=== PATIENT | female | born 1985 | race Caucasian/White ===

== ENCOUNTER 2018-01-15 21:29 | Emergency (ER) | payer OTHER, MEDICAID ==
[~2018-01-15] VITALS: Ht 149.9 cm; Wt 58.1 kg
[~2018-01-15 21:29] MED LIST: AMOXICILLIN 50500 MG PO; PERIDEX15 ML SWISH&SPIT; TRAMADOL 50 MG50 MG PO; magic mouthwash PO
[2018-01-15] MEDS ORDERED: ULTRAM50 MG PO (21:57)
[2018-01-15] MEDS ORDERED: ZOVIRAX800 MG PO (21:57)
[2018-01-15] MEDS ORDERED: NYSTATIN100000 UNI PO (21:57)
[2018-01-15 22:30] VITALS: BP 113/71
== END 2018-01-15 22:32 | disposition home or self-care (01) ==
LOC: M.ERS 21:29
DX: K13.79 Other lesions of oral mucosa (principal); Z90.49 Acquired absence of other specified parts of digestive tract; Z88.6 Allergy status to analgesic agent

== ENCOUNTER 2018-08-22 09:24 | Emergency (ER) | payer OTHER, MEDICAID ==
[~2018-08-22] VITALS: Ht 149.9 cm; Wt 56.7 kg
[~2018-08-22 09:24] MED LIST changes: +NYSTATIN100000 UNI PO; +ULTRAM50 MG PO; +ZOVIRAX800 MG PO
[2018-08-22 10:11] LABS: HEMATOCRIT 38.8 % (37.0-47.0); HEMOGLOBIN 13.1 gm/dL (12.0-15.0); MCH 31.1 pg (26.0-34.0); MCHC 33.8 g/dL (28.0-37.0); MCV 91.9 fL (80.0-100.0); MPV 8.7 fl. (7.2-11.1); RBC 4.22 mil/uL (4.20-5.00); RDW-CV 12.6 % (10.5-14.5); WBC 4.4 thou/uL (4.0-11.0)
[2018-08-22 10:19] LABS: ANION GAP 7 mmol/L (7-16); BUN 6 mg/dL (7-18); CALCIUM 8.9 mg/dL (8.5-10.1); CHLORIDE 106 mmol/L (98-107); CO2 27 mmol/L (21-32); CREATININE 0.6 mg/dL (0.6-1.3); GLUCOSE 88 mg/dL (70-99); SODIUM 140 mmol/L (136-145)
[2018-08-22 10:24] LABS: ALBUMIN 3.6 g/dL (3.4-5.0); ALKALINE PHOSPHATASE 73 U/L (46-116); LIPASE 326 U/L (73-393); SGOT 22 U/L (15-37); SGPT 23 U/L (30-65); TOTAL BILIRUBIN 0.4 mg/dL (<0.1-1.0); TROPONIN-I LEVEL <0.06 ng/mL (<0.06)
[2018-08-22] MEDS ORDERED: HYDROCODONE-AP1 EAC6 PO (10:34)
[2018-08-22] MEDS ORDERED: FLEXERIL PO (10:34)
[2018-08-22 10:42] VITALS: BP 111/64
== END 2018-08-22 10:42 | disposition home or self-care (01) ==
LOC: M.ERS 09:24
PROVIDERS: Emergency Medicine Emergency Medical Services
DX: R07.81 Pleurodynia (principal); M54.9 Dorsalgia, unspecified; Z90.49 Acquired absence of other specified parts of digestive tract; Z88.1 Allergy status to other antibiotic agents; Z88.8 Allergy status to other drugs, medicaments and biological substances; V40.0XXA Car driver injured in collision with pedestrian or animal in nontraffic accident, initial encounter; Y93.89 Activity, other specified; Y92.89 Other specified places as the place of occurrence of the external cause; Y99.8 Other external cause status

== ENCOUNTER 2018-09-30 16:20 | Emergency (ER) | payer OTHER, MEDICAID ==
[~2018-09-30] VITALS: Ht 149.9 cm; Wt 56.7 kg
[~2018-09-30 16:20] MED LIST changes: +FLEXERIL PO; +HYDROCODONE-AP1 EAC6 PO
[2018-09-30 16:31] VITALS: BP 106/64
[2018-09-30] MEDS ORDERED: BACTRIM DS TAB1 EACH PO (16:50)
== END 2018-09-30 17:11 | disposition home or self-care (01) ==
LOC: M.ERS 16:20
DX: J02.9 Acute pharyngitis, unspecified (principal); S20.461A Insect bite (nonvenomous) of right back wall of thorax, initial encounter; L08.9 Local infection of the skin and subcutaneous tissue, unspecified; Z90.49 Acquired absence of other specified parts of digestive tract; Z88.1 Allergy status to other antibiotic agents; Z88.8 Allergy status to other drugs, medicaments and biological substances; W57.XXXA Bitten or stung by nonvenomous insect and other nonvenomous arthropods, initial encounter; Y93.89 Activity, other specified; Y92.89 Other specified places as the place of occurrence of the external cause; Y99.8 Other external cause status

== ENCOUNTER 2018-12-04 00:48 | Emergency (ER) | payer OTHER, MEDICAID ==
[~2018-12-04] VITALS: Ht 149.9 cm; Wt 56.7 kg
[~2018-12-04 00:48] MED LIST changes: +BACTRIM DS TAB1 EACH PO
[2018-12-04 01:35] LABS: URINE BILIRUBIN NEGATIVE (Negative); URINE BLOOD 3+ (Negative); URINE CLARITY CLEAR; URINE COLOR YELLOW; URINE GLUCOSE-RANDOM NEGATIVE (Negative); URINE KETONES NEGATIVE (Negative); URINE LEUKOCYTES-REFLEX NEGATIVE (Negative); URINE NITRITE-REFLEX NEGATIVE (Negative); URINE PROTEIN NEGATIVE (Negative); URINE UROBILINOGEN 0.2 E.U./dl (0.2-1.0)
[2018-12-04 01:42] LABS: BACTERIA-REFLEX >30 Many /HPF (None Seen); CASTS None Seen /LPF (None Seen); MUCUS 4-6 Moderate strn/LPF (None Seen); SQUAMOUS 0-3 Few /LPF (0-3); URINE RBC >20 Many /HPF (0-2); URINE WBC-REFLEX 0-5 Rare /HPF (0-5)
[2018-12-04 01:43] LABS: AMORPHOUS URATES Many /LPF (None Seen)
[2018-12-04 01:46] LABS: ABSOLUTE EOSINOPHILS 0.2 thou/uL (0.0-0.7); ABSOLUTE LYMPHOCYTES 2.2 thou/uL (0.8-5.3); ABSOLUTE MONOCYTES 0.4 thou/uL (0.0-1.2); ABSOLUTE NEUTROPHILS 3.1 thou/uL (1.6-8.1); BASOPHILS 0.6 %; EOSINOPHILS 3.1 %; HEMATOCRIT 35.9 % (37.0-47.0); HEMOGLOBIN 12.5 gm/dL (12.0-15.0); LYMPHOCYTES 37.4 %; MCH 31.6 pg (26.0-34.0); MCHC 34.7 g/dL (28.0-37.0); MCV 90.9 fL (80.0-100.0); MONOCYTES 6.8 %; MPV 8.4 fl. (7.2-11.1); NUCLEATED RBCS 0 /100WBC; PLATELET COUNT* 199 thou/uL (150-400); POLYS 52.1 %; RBC 3.95 mil/uL (4.20-5.00); RDW-CV 13.1 % (10.5-14.5); WBC 5.9 thou/uL (4.0-11.0)
[2018-12-04 01:56] LABS: CALCIUM 8.6 mg/dL (8.5-10.1); CREATININE 0.7 mg/dL (0.6-1.3); POTASSIUM 3.6 mmol/L (3.5-5.1)
[2018-12-04 02:01] LABS: ALBUMIN 3.4 g/dL (3.4-5.0); TOTAL BILIRUBIN 0.2 mg/dL (<0.1-1.0); TOTAL PROTEIN 7.2 g/dL (6.4-8.2)
[2018-12-04] MEDS ORDERED: MACROBID 100 M100 M1 PO (02:06)
[2018-12-04 02:20] VITALS: BP 124/74
== END 2018-12-04 02:23 | disposition home or self-care (01) ==
LOC: M.ERS 00:48
PROVIDERS: Emergency Medicine
DX: N39.0 Urinary tract infection, site not specified (principal); R42 Dizziness and giddiness; Z88.6 Allergy status to analgesic agent; Z88.8 Allergy status to other drugs, medicaments and biological substances; Z90.49 Acquired absence of other specified parts of digestive tract; Z98.890 Other specified postprocedural states

== ENCOUNTER 2018-12-12 21:56 | Emergency (ER) | payer OTHER, MEDICAID ==
[~2018-12-12] VITALS: Ht 149.9 cm; Wt 56.7 kg
[~2018-12-12 21:56] MED LIST changes: +MACROBID 100 M100 M1 PO
[2018-12-12] MEDS ORDERED: MACROBID 100 M100 M1 PO (22:05)
[2018-12-12] MEDS ORDERED: FLAGYL500 M1 PO (22:05)
[2018-12-12] MEDS ORDERED: ROBAXIN 750 MG750 M1 PO (22:06)
[2018-12-12 22:34] LABS: CALCIUM 9.1 mg/dL (8.5-10.1); CREATININE 0.7 mg/dL (0.6-1.3); POTASSIUM 3.3 mmol/L (3.5-5.1)
[2018-12-12 22:41] LABS: ABSOLUTE LYMPHOCYTES 1.8 thou/uL (0.8-5.3); MCHC 34.4 g/dL (28.0-37.0); NUCLEATED RBCS 0 /100WBC; POLYS 53.9 %
[2018-12-12 22:43] LABS: ABSOLUTE EOSINOPHILS 0.1 thou/uL (0.0-0.7); ABSOLUTE MONOCYTES 0.4 thou/uL (0.0-1.2); ABSOLUTE NEUTROPHILS 2.7 thou/uL (1.6-8.1); BASOPHILS 0.6 %; EOSINOPHILS 2.8 %; HEMATOCRIT 39.6 % (37.0-47.0); HEMOGLOBIN 13.6 gm/dL (12.0-15.0); LYMPHOCYTES 35.5 %; MCH 31.7 pg (26.0-34.0); MCV 92.2 fL (80.0-100.0); MONOCYTES 7.2 %; MPV 8.9 fl. (7.2-11.1); PLATELET COUNT* 202 thou/uL (150-400); RBC 4.29 mil/uL (4.20-5.00); RDW-CV 13.4 % (10.5-14.5); WBC 5.1 thou/uL (4.0-11.0)
[2018-12-12] MEDS ORDERED: FLEXERIL PO (22:51)
[2018-12-12] MEDS ORDERED: PREDNISONE 20 M20 MG PO (22:51)
[2018-12-12] MEDS ORDERED: BENADRYL25 MG PO (22:51)
[2018-12-12] MEDS ORDERED: PEPCID20 MG PO (22:51)
[2018-12-12 23:33] VITALS: BP 111/68
== END 2018-12-12 23:36 | disposition home or self-care (01) ==
LOC: M.ERS 21:56
PROVIDERS: Nurse Practitioner Family
DX: L50.9 Urticaria, unspecified (principal); T42.8X5A Adverse effect of antiparkinsonism drugs and other central muscle-tone depressants, initial encounter; Z98.890 Other specified postprocedural states; Z90.49 Acquired absence of other specified parts of digestive tract; Z88.6 Allergy status to analgesic agent; Z88.8 Allergy status to other drugs, medicaments and biological substances; Y92.89 Other specified places as the place of occurrence of the external cause

== ENCOUNTER → 2018-12-17 | Outpatient (CLI) | payer OTHER, MEDICAID ==
[~2018-12-17] MED LIST changes: +BENADRYL25 MG PO; +FLAGYL500 M1 PO; +PEPCID20 MG PO; +PREDNISONE 20 M20 MG PO; +ROBAXIN 750 MG750 M1 PO
== END ==
LOC: M.ULTRA 09:50
DX: N63.10 Unspecified lump in the right breast, unspecified quadrant (principal)

== ENCOUNTER 2019-02-19 10:35 | Emergency (ER) | payer OTHER, MEDICAID ==
[~2019-02-19] VITALS: Ht 149.9 cm; Wt 51.7 kg
[2019-02-19 11:00] LABS: URINE BILIRUBIN NEGATIVE (Negative); URINE BLOOD NEGATIVE (Negative); URINE CLARITY CLEAR; URINE COLOR YELLOW; URINE GLUCOSE-RANDOM NEGATIVE (Negative); URINE KETONES NEGATIVE (Negative); URINE LEUKOCYTES-REFLEX NEGATIVE (Negative); URINE NITRITE-REFLEX NEGATIVE (Negative); URINE PROTEIN TRACE (Negative)
[2019-02-19 11:02] LABS: ABSOLUTE EOSINOPHILS 0.2 thou/uL (0.0-0.7); ABSOLUTE LYMPHOCYTES 1.7 thou/uL (0.8-5.3); ABSOLUTE MONOCYTES 0.3 thou/uL (0.0-1.2); ABSOLUTE NEUTROPHILS 2.8 thou/uL (1.6-8.1); BASOPHILS 0.6 %; EOSINOPHILS 3.5 %; HEMATOCRIT 42.6 % (37.0-47.0); HEMOGLOBIN 14.9 gm/dL (12.0-15.0); LYMPHOCYTES 34.5 %; MCH 31.7 pg (26.0-34.0); MCHC 34.9 g/dL (28.0-37.0); MCV 91.1 fL (80.0-100.0); MONOCYTES 6.5 %; MPV 8.4 fl. (7.2-11.1); NUCLEATED RBCS 0 /100WBC; PLATELET COUNT* 238 thou/uL (150-400); POLYS 54.9 %; RBC 4.68 mil/uL (4.20-5.00); RDW-CV 12.7 % (10.5-14.5)
[2019-02-19 11:19] LABS: ALBUMIN 4.3 g/dL (3.4-5.0); CALCIUM 9.9 mg/dL (8.5-10.1); CREATININE 0.6 mg/dL (0.6-1.3); POTASSIUM 3.5 mmol/L (3.5-5.1); TOTAL BILIRUBIN 1.1 mg/dL (<0.1-1.0)
[2019-02-19] MEDS ORDERED: ACETAMINOPHEN-1 EAC1 PO (11:56)
[2019-02-19] MEDS ORDERED: ZOFRAN ODT4 MG PO (11:56)
[2019-02-19 12:10] VITALS: BP 128/72
== END 2019-02-19 12:35 | disposition home or self-care (01) ==
LOC: M.ERS 10:35
PROVIDERS: Physician Assistant
DX: R11.2 Nausea with vomiting, unspecified (principal); R19.7 Diarrhea, unspecified; R10.13 Epigastric pain; Z88.8 Allergy status to other drugs, medicaments and biological substances; Z90.49 Acquired absence of other specified parts of digestive tract; Z98.890 Other specified postprocedural states

== ENCOUNTER 2019-05-15 02:28 | Emergency (ER) | payer OTHER ==
[~2019-05-15] VITALS: Ht 149.9 cm; Wt 56.7 kg
[~2019-05-15 02:28] MED LIST changes: +ACETAMINOPHEN-1 EAC1 PO; +ZOFRAN ODT4 MG PO
[2019-05-15] MEDS ORDERED: FLEXERIL PO ×2 (02:40→03:44)
[2019-05-15] MEDS ORDERED: CARAFATE 1 GM TA1 GM PO (03:44)
[2019-05-15 03:53] VITALS: BP 114/68
--- NOTE | 2019-05-17 12:24 | EKG ---
[place] [address] ELECTROCARDIOGRAM REPORT Name: ALICE DURHAM Room: 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
== END 2019-05-15 03:55 | disposition home or self-care (01) ==
LOC: M.ERS 02:28
DX: R06.00 Dyspnea, unspecified (principal); F12.10 Cannabis abuse, uncomplicated; R10.13 Epigastric pain; M54.9 Dorsalgia, unspecified; Z90.89 Acquired absence of other organs; Z98.51 Tubal ligation status

== ENCOUNTER 2019-06-24 12:34 | Emergency (ER) | payer OTHER ==
[~2019-06-24] VITALS: Ht 149.9 cm; Wt 56.7 kg
[~2019-06-24 12:34] MED LIST changes: +CARAFATE 1 GM TA1 GM PO
[2019-06-24 13:03] LABS: HEMATOCRIT 41.6 % (37.0-47.0); HEMOGLOBIN 14.7 gm/dL (12.0-15.0); MCH 32.2 pg (26.0-34.0); MCHC 35.3 g/dL (28.0-37.0); MCV 91.2 fL (80.0-100.0); MPV 8.7 fl. (7.2-11.1); RBC 4.56 mil/uL (4.20-5.00); RDW-CV 12.7 % (10.5-14.5); WBC 7.3 thou/uL (4.0-11.0)
[2019-06-24 13:12] LABS: CALCIUM 9.3 mg/dL (8.5-10.1); CREATININE 0.7 mg/dL (0.6-1.3); POTASSIUM 3.7 mmol/L (3.5-5.1)
[2019-06-24 13:16] LABS: ALBUMIN 4.2 g/dL (3.4-5.0); TOTAL BILIRUBIN 0.6 mg/dL (<0.1-1.0); TOTAL PROTEIN 8.4 g/dL (6.4-8.2)
[2019-06-24 13:22] LABS: SALICYLATE 3.7 mg/dL (2.8-20.0)
[2019-06-24 13:23] LABS: ACETAMINOPHEN < 2 ug/mL (10-30); ALCOHOL < 10 mg/dL (<10)
[2019-06-24 14:19] LABS: URINE BILIRUBIN NEGATIVE (Negative); URINE BLOOD NEGATIVE (Negative); URINE CLARITY CLEAR; URINE COLOR YELLOW; URINE GLUCOSE-RANDOM NEGATIVE (Negative); URINE KETONES NEGATIVE (Negative); URINE LEUKOCYTES NEGATIVE (Negative); URINE NITRITE NEGATIVE (Negative); URINE PROTEIN NEGATIVE (Negative); URINE UROBILINOGEN 0.2 E.U./dl (0.2-1.0)
[2019-06-24 14:30] LABS: AMP/METHAMP Negative (Negative); BARBITURATES Negative (Negative); BENZODIAZEPINES Negative (Negative); COCAINE Negative (Negative); METHADONE Negative (Negative); OPIATES Negative (Negative); PCP Negative (Negative); THC POSITIVE (Negative)
[2019-06-24 17:39] VITALS: BP 123/68
== END 2019-06-24 17:40 | disposition home or self-care (01) ==
LOC: M.ERS 12:34
PROVIDERS: Personal Emergency Response Attendant
DX: F32.9 Major depressive disorder, single episode, unspecified (principal); Z88.8 Allergy status to other drugs, medicaments and biological substances; Z90.49 Acquired absence of other specified parts of digestive tract; Z98.890 Other specified postprocedural states

== ENCOUNTER 2019-06-30 10:56 | Emergency (ER) | payer OTHER ==
[~2019-06-30] VITALS: Ht 149.9 cm; Wt 56.7 kg
[2019-06-30] MEDS ORDERED: HYDROCODON-ACE1 EAC7 PO (11:10)
[2019-06-30] MEDS ORDERED: FLEXERIL PO (11:10)
[2019-06-30 11:17] VITALS: BP 117/82
== END 2019-06-30 11:18 | disposition home or self-care (01) ==
LOC: M.ERS 10:56
DX: S16.1XXA Strain of muscle, fascia and tendon at neck level, initial encounter (principal); Z98.51 Tubal ligation status; Z90.49 Acquired absence of other specified parts of digestive tract; Z98.890 Other specified postprocedural states; Z88.8 Allergy status to other drugs, medicaments and biological substances; X58.XXXA Exposure to other specified factors, initial encounter; Y93.89 Activity, other specified; Y92.89 Other specified places as the place of occurrence of the external cause; Y99.8 Other external cause status

== ENCOUNTER 2019-10-08 18:17 | Emergency (ER) | payer OTHER ==
[~2019-10-08] VITALS: Ht 149.9 cm; Wt 59.0 kg
[~2019-10-08 18:17] MED LIST changes: +HYDROCODON-ACE1 EAC7 PO
[2019-10-08 19:41] LABS: HEMATOCRIT 36.9 % (37.0-47.0); HEMOGLOBIN 12.9 gm/dL (12.0-15.0); MCH 32.3 pg (26.0-34.0); MCHC 35.1 g/dL (28.0-37.0); MCV 92.1 fL (80.0-100.0); MPV 8.7 fl. (7.2-11.1); RBC 4.01 mil/uL (4.20-5.00); RDW-CV 12.6 % (10.5-14.5); WBC 5.6 thou/uL (4.0-11.0)
[2019-10-08] MEDS ORDERED: IBUPROFEN 800800 M1 PO (20:15)
[2019-10-08] MEDS ORDERED: FLEXERIL PO (20:15)
[2019-10-08] MEDS ORDERED: NORCO 5-325 TA1 EAC1 PO (20:15)
[2019-10-08 20:21] VITALS: BP 112/71
--- NOTE | 2019-10-11 14:33 | EKG ---
[place] [address] ELECTROCARDIOGRAM REPORT Name: ALICE DURHAM Room: [facility]#: [id number] Admission: 10/08/19 Attend Phys: Discharge: 10/08/19 Date of : 87 Report #: [id number] THIS REPORT FOR: //name// [facility] ED Test Date: 2019-10-08 Test Time: 18:25:25 Pat Name: ALICE DURHAM Department: Room: Gender: F Clinical Services Director: ALEJANDRO : 1985 Requested By: Marty Giron Order Number: [id number] MD: Omkar Cotto Measurements Intervals [place] Rate: 71 P: -16 ND: 156 QRS: 65 QRSD: 83 T: 49 QT: 393 QTc: 428 Interpretive Statements Sinus rhythm RSR' in V1 or V2, probably normal variant Baseline wander in lead(s) V3 Compared to ECG 05/15/2019 02:36:35 Right ventricular hypertrophy no longer present Electronically Signed On 10-11-2019 14:32:34 ELECTRICIAN SOUND by Omkar Cotto [email or web address] <ELECTRONICALLY SIGNED> By: Omkar Cotto MD, [facility] 10/11/19 1432 1825 182 Omkar Cotto MD, [facility] /EPI
== END 2019-10-08 20:22 | disposition home or self-care (01) ==
LOC: M.ERS 18:17
PROVIDERS: Emergency Medicine Emergency Medical Services
DX: M94.0 Chondrocostal junction syndrome [Tietze] (principal); Z90.49 Acquired absence of other specified parts of digestive tract; Z98.890 Other specified postprocedural states; Z88.8 Allergy status to other drugs, medicaments and biological substances

== ENCOUNTER 2019-11-29 14:37 | Emergency (ER) | payer OTHER ==
[~2019-11-29] VITALS: Ht 149.9 cm; Wt 59.0 kg
[~2019-11-29 14:37] MED LIST changes: +IBUPROFEN 800800 M1 PO; +NORCO 5-325 TA1 EAC1 PO
[2019-11-29 15:51] LABS: URINE BILIRUBIN NEGATIVE (Negative); URINE BLOOD NEGATIVE (Negative); URINE CLARITY CLEAR; URINE COLOR YELLOW; URINE GLUCOSE-RANDOM NEGATIVE (Negative); URINE KETONES NEGATIVE (Negative); URINE LEUKOCYTES-REFLEX NEGATIVE (Negative); URINE NITRITE-REFLEX NEGATIVE (Negative); URINE PROTEIN 1+ (Negative); URINE SPECIFIC GRAVITY 1.025 (1.005-1.030); URINE UROBILINOGEN 0.2 E.U./dl (0.2-1.0)
[2019-11-29 15:52] LABS: ABSOLUTE EOSINOPHILS 0.1 thou/uL (0.0-0.7); ABSOLUTE LYMPHOCYTES 1.4 thou/uL (0.8-5.3); ABSOLUTE MONOCYTES 0.3 thou/uL (0.0-1.2); ABSOLUTE NEUTROPHILS 4.3 thou/uL (1.6-8.1); BASOPHILS 0.4 %; EOSINOPHILS 1.7 %; HEMATOCRIT 38.9 % (37.0-47.0); HEMOGLOBIN 13.6 gm/dL (12.0-15.0); LYMPHOCYTES 22.5 %; MCH 32.3 pg (26.0-34.0); MCV 92.3 fL (80.0-100.0); MONOCYTES 5.1 %; MPV 8.1 fl. (7.2-11.1); NUCLEATED RBCS 0 /100WBC; PLATELET COUNT* 209 thou/uL (150-400); POLYS 70.3 %; RBC 4.21 mil/uL (4.20-5.00); RDW-CV 13.3 % (10.5-14.5); WBC 6.1 thou/uL (4.0-11.0)
[2019-11-29 16:00] LABS: CALCIUM 8.8 mg/dL (8.5-10.1); CREATININE 0.7 mg/dL (0.6-1.3)
[2019-11-29 16:00] LABS: AMP/METHAMP Negative (Negative); BARBITURATES Negative (Negative); BENZODIAZEPINES Negative (Negative); COCAINE Negative (Negative); METHADONE Negative (Negative); OPIATES Negative (Negative); PCP Negative (Negative); THC POSITIVE (Negative)
[2019-11-29 16:05] LABS: ALBUMIN 3.7 g/dL (3.4-5.0); TOTAL BILIRUBIN 0.4 mg/dL (<0.1-1.0); TOTAL PROTEIN 8.1 g/dL (6.4-8.2)
[2019-11-29 16:44] VITALS: BP 110/67
== END 2019-11-29 16:46 | disposition home or self-care (01) ==
LOC: M.ERS 14:37
PROVIDERS: Physician Assistant
DX: F41.9 Anxiety disorder, unspecified (principal); Z90.49 Acquired absence of other specified parts of digestive tract; Z98.890 Other specified postprocedural states; Z88.8 Allergy status to other drugs, medicaments and biological substances

== ENCOUNTER 2020-03-19 21:13 | Emergency (ER) | payer OTHER ==
[~2020-03-19] VITALS: Ht 149.9 cm; Wt 63.5 kg
[2020-03-19] MEDS ORDERED: BACTRIM DS TAB1 EAC1 PO (22:29)
[2020-03-19 22:41] VITALS: BP 105/59
== END 2020-03-19 22:43 | disposition home or self-care (01) ==
LOC: M.ERS 21:13
DX: N63.10 Unspecified lump in the right breast, unspecified quadrant (principal); F12.10 Cannabis abuse, uncomplicated; Z98.51 Tubal ligation status; Z90.89 Acquired absence of other organs; Z88.8 Allergy status to other drugs, medicaments and biological substances

== ENCOUNTER 2020-03-28 11:29 | Emergency (ER) | payer OTHER ==
[~2020-03-28] VITALS: Ht 149.9 cm; Wt 63.5 kg
[~2020-03-28 11:29] MED LIST changes: +BACTRIM DS TAB1 EAC1 PO
[2020-03-28 12:15] LABS: URINE BILIRUBIN NEGATIVE (Negative); URINE BLOOD TRACE (Negative); URINE CLARITY CLEAR; URINE COLOR YELLOW; URINE GLUCOSE-RANDOM NEGATIVE (Negative); URINE KETONES 1+ (Negative); URINE LEUKOCYTES-REFLEX NEGATIVE (Negative); URINE NITRITE-REFLEX NEGATIVE (Negative); URINE PROTEIN NEGATIVE (Negative); URINE UROBILINOGEN 0.2 E.U./dl (0.2-1.0)
[2020-03-28 12:33] LABS: ABSOLUTE EOSINOPHILS 0.1 thou/uL (0.0-0.7); ABSOLUTE LYMPHOCYTES 0.7 thou/uL (0.8-5.3); ABSOLUTE MONOCYTES 0.3 thou/uL (0.0-1.2); ABSOLUTE NEUTROPHILS 3.2 thou/uL (1.6-8.1); BASOPHILS 0.4 %; EOSINOPHILS 1.9 %; HEMATOCRIT 38.5 % (37.0-47.0); HEMOGLOBIN 13.5 gm/dL (12.0-15.0); LYMPHOCYTES 17.1 %; MCH 32.4 pg (26.0-34.0); MCV 92.4 fL (80.0-100.0); MONOCYTES 6.4 %; MPV 8.5 fl. (7.2-11.1); NUCLEATED RBCS 0 /100WBC; PLATELET COUNT* 196 thou/uL (150-400); POLYS 74.2 %; RBC 4.17 mil/uL (4.20-5.00); RDW-CV 12.4 % (10.5-14.5); WBC 4.3 thou/uL (4.0-11.0)
[2020-03-28 12:43] LABS: CALCIUM 8.4 mg/dL (8.5-10.1); CREATININE 0.9 mg/dL (0.6-1.3); POTASSIUM 3.2 mmol/L (3.5-5.1)
[2020-03-28] MEDS ORDERED: ONDANSETRON HCL4 M3 PO (12:49)
[2020-03-28] MEDS ORDERED: DOXYCYCLINE 10100 MG PO (12:49)
[2020-03-28 12:58] VITALS: BP 120/79
[2020-03-28 13:00] LABS: ALBUMIN 3.7 g/dL (3.4-5.0); TOTAL BILIRUBIN 0.4 mg/dL (<0.1-1.0); TOTAL PROTEIN 7.6 g/dL (6.4-8.2)
== END 2020-03-28 12:58 | disposition home or self-care (01) ==
LOC: M.ERS 11:29
PROVIDERS: Physician Assistant
DX: R11.0 Nausea (principal); R19.7 Diarrhea, unspecified; R51 Headache; Z90.89 Acquired absence of other organs; Z98.51 Tubal ligation status; Z88.8 Allergy status to other drugs, medicaments and biological substances

== ENCOUNTER 2020-06-01 12:57 | Emergency (ER) | payer OTHER ==
[~2020-06-01] VITALS: Ht 149.9 cm; Wt 59.0 kg
[~2020-06-01 12:57] MED LIST changes: +DOXYCYCLINE 10100 MG PO; +ONDANSETRON HCL4 M3 PO
[2020-06-01] MEDS ORDERED: IBUPROFEN 800800 M1 PO (14:35)
[2020-06-01] MEDS ORDERED: BUTALB-APAP-CA1 EACH PO (14:35)
[2020-06-01] MEDS ORDERED: FLEXERIL PO (14:35)
[2020-06-01 15:11] VITALS: BP 102/56
== END 2020-06-01 15:12 | disposition home or self-care (01) ==
LOC: M.ERS 12:57
DX: S06.0X0A Concussion without loss of consciousness, initial encounter (principal); S16.1XXA Strain of muscle, fascia and tendon at neck level, initial encounter; Z98.51 Tubal ligation status; Z90.49 Acquired absence of other specified parts of digestive tract; Z98.890 Other specified postprocedural states; Z88.8 Allergy status to other drugs, medicaments and biological substances; W01.0XXA Fall on same level from slipping, tripping and stumbling without subsequent striking against object, initial encounter; Y93.89 Activity, other specified; Y92.89 Other specified places as the place of occurrence of the external cause; Y99.8 Other external cause status

== ENCOUNTER 2020-06-08 11:43 | Emergency (ER) | payer OTHER ==
[~2020-06-08] VITALS: Ht 149.9 cm; Wt 59.0 kg
[~2020-06-08 11:43] MED LIST changes: +BUTALB-APAP-CA1 EACH PO
[2020-06-08] MEDS ORDERED: APAP W/CODEINE1 TA2 PO (12:14)
[2020-06-08 12:24] VITALS: BP 109/53
== END 2020-06-08 12:25 | disposition home or self-care (01) ==
LOC: M.ERS 11:43
DX: J02.9 Acute pharyngitis, unspecified (principal); Z88.8 Allergy status to other drugs, medicaments and biological substances; Z98.51 Tubal ligation status; Z90.49 Acquired absence of other specified parts of digestive tract; Z98.890 Other specified postprocedural states

== ENCOUNTER 2020-08-06 00:30 | Emergency (ER) | payer OTHER ==
[~2020-08-06] VITALS: Ht 149.9 cm; Wt 59.0 kg
[~2020-08-06 00:30] MED LIST changes: +APAP W/CODEINE1 TA2 PO
[2020-08-06 00:55] LABS: ABSOLUTE EOSINOPHILS 0.1 thou/uL (0.0-0.7); ABSOLUTE LYMPHOCYTES 2.4 thou/uL (0.8-5.3); ABSOLUTE MONOCYTES 0.5 thou/uL (0.0-1.2); ABSOLUTE NEUTROPHILS 5.5 thou/uL (1.6-8.1); BASOPHILS 0.5 %; EOSINOPHILS 1.6 %; HEMATOCRIT 40.2 % (37.0-47.0); HEMOGLOBIN 13.7 gm/dL (12.0-15.0); LYMPHOCYTES 28.3 %; MCH 31.9 pg (26.0-34.0); MCV 93.8 fL (80.0-100.0); MONOCYTES 5.7 %; MPV 7.9 fl. (7.2-11.1); NUCLEATED RBCS 0 /100WBC; PLATELET COUNT* 238 thou/uL (150-400); POLYS 63.9 %; RBC 4.29 mil/uL (4.20-5.00); RDW-CV 12.8 % (10.5-14.5); WBC 8.6 thou/uL (4.0-11.0)
[2020-08-06 00:58] LABS: URINE BILIRUBIN NEGATIVE (Negative); URINE BLOOD NEGATIVE (Negative); URINE CLARITY CLEAR; URINE COLOR YELLOW; URINE GLUCOSE-RANDOM NEGATIVE (Negative); URINE KETONES NEGATIVE (Negative); URINE LEUKOCYTES-REFLEX NEGATIVE (Negative); URINE NITRITE-REFLEX NEGATIVE (Negative); URINE PROTEIN NEGATIVE (Negative); URINE SPECIFIC GRAVITY 1.025 (1.005-1.030); URINE UROBILINOGEN 0.2 E.U./dl (0.2-1.0)
[2020-08-06 00:59] LABS: AMP/METHAMP Negative (Negative); BARBITURATES Negative (Negative); BENZODIAZEPINES Negative (Negative); COCAINE Negative (Negative); METHADONE Negative (Negative); OPIATES Negative (Negative); PCP Negative (Negative); THC POSITIVE (Negative)
[2020-08-06 01:03] LABS: CALCIUM 8.9 mg/dL (8.5-10.1); CREATININE 0.8 mg/dL (0.6-1.3); POTASSIUM 3.6 mmol/L (3.5-5.1)
[2020-08-06 01:08] LABS: ALBUMIN 3.6 g/dL (3.4-5.0); TOTAL BILIRUBIN 0.4 mg/dL (<0.1-1.0); TOTAL PROTEIN 8.2 g/dL (6.4-8.2)
[2020-08-06 01:10] LABS: ACETAMINOPHEN < 2 ug/mL (10-30); ALCOHOL < 10 mg/dL (<10); SALICYLATE 7.1 mg/dL (2.8-20.0)
[2020-08-06 03:15] VITALS: BP 150/87
== END 2020-08-06 03:15 | disposition home or self-care (01) ==
LOC: M.ERS 00:30
PROVIDERS: Family Medicine
DX: F32.9 Major depressive disorder, single episode, unspecified (principal); Z98.51 Tubal ligation status; Z90.49 Acquired absence of other specified parts of digestive tract; Z98.890 Other specified postprocedural states; Z88.8 Allergy status to other drugs, medicaments and biological substances; Z79.899 Other long term (current) drug therapy

== ENCOUNTER 2020-12-16 11:07 | Emergency (ER) | payer OTHER ==
[~2020-12-16] VITALS: Ht 149.9 cm; Wt 59.0 kg
[2020-12-16] MEDS ORDERED: PROVERA2.5 MG PO (11:24)
[2020-12-16 11:41] LABS: URINE BILIRUBIN NEGATIVE (Negative); URINE BLOOD 3+ (Negative); URINE CLARITY SL CLOUDY; URINE COLOR YELLOW; URINE GLUCOSE-RANDOM NEGATIVE (Negative); URINE KETONES NEGATIVE (Negative); URINE LEUKOCYTES-REFLEX NEGATIVE (Negative); URINE NITRITE-REFLEX NEGATIVE (Negative); URINE PROTEIN 1+ (Negative); URINE UROBILINOGEN 0.2 E.U./dl (0.2-1.0)
[2020-12-16 11:48] LABS: SQUAMOUS >10 Many /LPF (0-3)
[2020-12-16 11:49] LABS: CASTS None Seen /LPF (None Seen); MUCUS >6 Heavy strn/LPF (None Seen); URINE RBC 3-10 Few /HPF (0-2); URINE WBC-REFLEX 0-5 Rare /HPF (0-5)
[2020-12-16 11:50] LABS: CRYSTALS None Seen /LPF (None Seen)
[2020-12-16 12:06] LABS: ABSOLUTE EOSINOPHILS 0.1 thou/uL (0.0-0.7); ABSOLUTE LYMPHOCYTES 1.3 thou/uL (0.8-5.3); ABSOLUTE MONOCYTES 0.4 thou/uL (0.0-1.2); ABSOLUTE NEUTROPHILS 7.3 thou/uL (1.6-8.1); BASOPHILS 0.5 %; EOSINOPHILS 0.9 %; HEMATOCRIT 38.8 % (37.0-47.0); HEMOGLOBIN 13.4 gm/dL (12.0-15.0); LYMPHOCYTES 14.5 %; MCH 31.8 pg (26.0-34.0); MCHC 34.7 g/dL (28.0-37.0); MCV 91.7 fL (80.0-100.0); MPV 8.2 fl. (7.2-11.1); NUCLEATED RBCS 0 /100WBC; PLATELET COUNT* 224 thou/uL (150-400); POLYS 80.1 %; RBC 4.23 mil/uL (4.20-5.00); RDW-CV 13.2 % (10.5-14.5); WBC 9.1 thou/uL (4.0-11.0)
[2020-12-16 12:15] LABS: CALCIUM 9.4 mg/dL (8.5-10.1); CREATININE 0.7 mg/dL (0.6-1.3); POTASSIUM 3.9 mmol/L (3.5-5.1)
[2020-12-16 12:19] LABS: ALBUMIN 3.3 g/dL (3.4-5.0); TOTAL BILIRUBIN 0.3 mg/dL (<0.1-1.0); TOTAL PROTEIN 7.4 g/dL (6.4-8.2)
[2020-12-16] MEDS ORDERED: ZOFRAN ODT4 MG DISSOLVE (13:43)
[2020-12-16] MEDS ORDERED: HYDROCODON-ACE1 EAC7 PO (13:43)
[2020-12-16] MEDS ORDERED: BACTRIM DS TAB1 EAC1 PO (13:43)
[2020-12-16 13:53] VITALS: BP 104/79
--- NOTE | 2020-12-17 11:54 | EKG ---
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: [facility] 1985 Requested By: Marty Giron Order Number: [id number] MD: Corky Gr Measurements Intervals [place] Rate: 77 P: -32 [place]: 170 QRS: 52 QRSD: 83 T: 23 QT: 375 QTc: 425 Interpretive Statements Sinus rhythm RSR' in V1 or V2, right VCD or RVH Compared to ECG 10/08/2019 18:25:25 Right ventricular hypertrophy now present Electronically Signed On 12-17-2020 11:54:44 [facility] by Corky Gr [email or web address] <ELECTRONICALLY SIGNED> By: Ignacio Gr MD, [facility] 12/17/20 1154 1143 1143 Ignacio Gr MD, [facility] /EPI
== END 2020-12-16 13:54 | disposition home or self-care (01) ==
LOC: M.ERS 11:07
PROVIDERS: Emergency Medicine Emergency Medical Services
DX: L73.8 Other specified follicular disorders (principal); R10.30 Lower abdominal pain, unspecified; L98.8 Other specified disorders of the skin and subcutaneous tissue; Z88.8 Allergy status to other drugs, medicaments and biological substances; Z98.51 Tubal ligation status; Z90.49 Acquired absence of other specified parts of digestive tract; Z98.890 Other specified postprocedural states

== ENCOUNTER 2021-03-16 16:55 | Emergency (ER) | payer OTHER, MEDICAID ==
[~2021-03-16] VITALS: Ht 149.9 cm; Wt 67.1 kg
[~2021-03-16 16:55] MED LIST changes: +PROVERA2.5 MG PO; +ZOFRAN ODT4 MG DISSOLVE
[2021-03-16] MEDS ORDERED: TESSALON PERLE100 MG PO (18:13)
[2021-03-16] MEDS ORDERED: APAP W/CODEINE1 TA2 PO (18:13)
[2021-03-16] MEDS ORDERED: PROMETHAZI6.25 MG/5 PO (18:13)
[2021-03-16 18:47] VITALS: BP 115/70
== END 2021-03-16 18:47 | disposition home or self-care (01) ==
LOC: M.ERS 16:55
DX: J06.9 Acute upper respiratory infection, unspecified (principal); Z20.822 Contact with and (suspected) exposure to COVID-19; Z88.8 Allergy status to other drugs, medicaments and biological substances; Z98.51 Tubal ligation status; Z90.49 Acquired absence of other specified parts of digestive tract